=== PATIENT | female | born 1975 | race Caucasian/White ===

== ENCOUNTER → 2016-09-07 | Outpatient (CLI) | payer OTHER ==
[~2016-09-07] MED LIST: ACYC800T PO; GABA-338 PO; NO DAILY MEDS; SULF1TAB42 PO
== END ==
LOC: WC.BC 13:46
PROVIDERS: ATTEND Family Medicine
DX: N64.52 Nipple discharge (principal); N64.59 Other signs and symptoms in breast
CPT/HCPCS: 76642; 77062; G0204